=== PATIENT | male | born 1970 | race African-American/Black ===

== ENCOUNTER 2021-11-03 22:15 | Inpatient (IN) | payer SELFPAY ==
[2021-11-03 22:55] VITALS: BMI 28.3
[2021-11-03] MEDS ORDERED: Ondansetron PF 4 MG/2 ML Vial IVP PRN (23:38)
[2021-11-03] MEDS: Ketorolac Tromethamine 30 MG/ML VIAL IVP PRN (23:38)
[2021-11-03] MEDS ORDERED: Acetaminophen 650 MG Suppository PR PRN (23:38)
[2021-11-04] MEDS: Sodium Chloride 0.9% 1,000 ML IV SCH ×2 (00:05→13:44)
[2021-11-04 05:36] LABS: #Eosinphils 0.1 thou/uL (0.0-0.7); #Lymphocytes 1.5 thou/uL (1.20-3.40); #Monocytes 0.8 thou/uL (0.11-0.59); #Neutrophils 4.1 thou/uL (1.40-6.50); %Basophils 0.7 % (0.0-1.0); %Eosinophils 2.1 % (0.0-10.0); %Lymphocytes 22.2 % (21.0-51.0); %Monocytes 12.8 % (0.0-10.0); %Neutrophils 62.2 % (42.0-75.0); Hemoglobin 13.1 g/dL (14.0-18.0); Mean Corpuscular HGB CONC 32.4 g/dL (32.0-36.0); Mean Corpuscular Hemoglobin 31.8 pg (27.0-31.0); Mean Corpuscular Volume 97.9 fL (78.0-98.0); Mean Platelet Volume 7.4 fL (7.4-10.4); Platelet Count 314 thou/uL (130-400); RBC Distribution Width 14.7 % (11.5-14.5); Red Blood Cell (RBC) Count 4.11 mill/uL (4.70-6.10); White Blood Cell (WBC) Count 6.6 thou/uL (4.8-10.8)
[2021-11-04 05:55] LABS: ALT (SGPT) 819 U/L (8-55); AST (SGOT) 336 U/L (5-34); Albumin 3.6 g/dL (3.5-5.0); Alkaline Phosphatase 192 U/L (40-110); Anion Gap 12 mmol/L (10-20); BUN (Urea Nitrogen) 10 mg/dL (8.4-25.7); Bilirubin, Total 1.8 mg/dL (0.2-1.2); Calc. Creatinine Clearance 113 mL/min (70-130); Calcium 8.5 mg/dL (7.8-10.44); Carbon Dioxide 23 mmol/L (22-29); Chloride 106 mmol/L (98-107); Globulin 2.5 g/dL (2.4-3.5); Glucose 100 mg/dL (70-105); Potassium 3.8 mmol/L (3.5-5.1); Protein, Total 6.1 g/dL (6.0-8.3); Sodium 137 mmol/L (136-145)
[2021-11-04] MEDS: Ketorolac Tromethamine 30 MG/ML VIAL IVP PRN (08:33)
[2021-11-04] MEDS ORDERED: Famotidine/PF 20 mg/2ml Vial SLOW IVP SCH (09:00)
[2021-11-04 10:59] LABS: Iron 88 ug/dL (65-175); Iron Binding Capacity, Total 293 mcg/dL (261-462); Transferrin, Serum 234 mg/dL (174-364)
[2021-11-04 11:15] VITALS: BP 109/72; TEMP 97.9
[2021-11-04 11:25] LABS: Hep A IgM AB Non-Reactive (NonReactive); Hep A IgM S/CO 0.14 S/CO (0-0.79); Hep C IgG Ab Non-Reactive (NonReactive); Hep C Index 0.12 S/CO (0-0.79)
[2021-11-04 11:26] LABS: HBCM Index 38.67 S/CO (0-0.79); Hepatitis B Core IgM Abs Reactive (NonReactive)
[2021-11-04 12:10] LABS: Ferritin 8338.16 ng/mL (22-322)
[2021-11-04 13:37] LABS: HBSAg Index 3334.61 S/CO (0-0.99)
[2021-11-04 13:38] LABS: Hep B Surf Ag Reflx Confirmation S/CO (NonReactive)
[2021-11-05 12:12] LABS: Hep B Surface AG-Rflx Sendout Confirm. indicated (Negative)
== END 2021-11-04 14:50 | disposition home or self-care (01) | DRG 390 ==
LOC: SJJU 22:49 → OBSVTOIN 11-04 12:05
PROVIDERS: ADMIT Student in an Organized Health Care Education/Training Program; ATTEND Internal Medicine
DX: K56.600 Partial intestinal obstruction, unspecified as to cause (principal); Z20.822 Contact with and (suspected) exposure to COVID-19; R74.01 Elevation of levels of liver transaminase levels; Z90.49 Acquired absence of other specified parts of digestive tract
CPT/HCPCS: 36415; 76705; 80053; 80074; 82728; 83540; 83550; 84466; 85025; 86015; 87340; 96374; 96375; G0378; J1885; J7050; S0028